=== PATIENT | female | born 1955 | race Two or more races ===

== ENCOUNTER 2024-04-15 12:58 | Emergency (ER) | payer MEDICARE, MEDICAID, SELFPAY ==
[2024-04-15 13:23] VITALS: BP 113/77; PULSE 76; RESP 16; TEMP 36.7; O2SAT 96; BMI 26.9
--- NOTE | 2024-04-15 13:37 | XR_ITS ---
Examination: PA lateral chest 2 views Technique: Upright PA lateral chest 2 views Exam date and time: April 15, 1999 2513.9 hours Indications: Coughing fever beginning 4 days ago. Findings: Mild prominence left ventricle Significant increased AP dimension chest Accentuation basilar bronchovascular markings No pulmonary edema No lobar pneumonia Severe osteopenia with kyphosis dorsal spine secondary to chronic wedging mid dorsal vertebral bodies Transpedicular lower thoracic lumbar stabilization Impression: COPD Basilar bronchitis versus early bronchopneumonia, clinical correlation advised
--- NOTE | 2024-04-15 13:38 | PD.EDADULT ---
ED General RME/HPI General Chief complaint: Flu Like Symptoms Stated complaint: FLU SYMPTOMS FOR 5 DAYS Time Seen by Provider: 04/15/24 13:37 Arrival date/time: 04/15/24 12:58 No CC: Cough fever chills phlegm HPI ongoing for 5 days, after day 2 the fever ceased but the rest of the symptoms including body aches persisted. Taking Tylenol as needed with minimal relief. Denies any chest pain difficulty breathing headache Related Data Previous Rx's ?Medication ?Instructions ?Recorded doxycycline hyclate 100 mg capsule 100 mg PO BID #14 caps 04/15/24 prednisone 20 mg tablet See Taper PO BID 3 days #6 tabs 04/15/24 Allergies Allergy/AdvReac Type Severity Reaction Status Date / Time Penicillins Allergy Severe Hives Verified 04/15/24 13:02 Review of Systems Review of Systems Narrative Review of Systems: GEN: + fever, + chills, no weight loss EYES: No discharge, no visual changes, no pain HEENT: No ear pain, no congestion, no sore throat PULM: No shortness of breath, no cough, no congestion CV: No chest pain, no dyspnea on exertion, no palpitations GI: No nausea, no vomiting, no diarrhea, no pain, no constipation : No frequency, no urgency, no dysuria MUSC/SKEL: No joint pain, no back pain SKIN: No rash PSYCH: No hallucinations, no depression HEME/LYMPH: No easy bleeding or bruising tendencies NEURO: + weakness, no headache Past Medical History Social History SMOKING STATUS: Light (< 1 pack/day) SUBSTANCE USE: does not use ED Exam Narrative Physical exam: [General: Obese not in cot no acute distress Head normocephalic HEENT: Within acceptable limits Neck is supple nontender Chest equal chest rise nontender to palpation Respiratory: Based end expiratory crackles, no upper lobe wheezing. Greater on the right than the left. CV: Rate rhythm is regular no murmurs rubs or clicks Abdomen is soft nontender no masses positive bowel sounds all 4 quadrants Back: No CVA tenderness no spinous process tenderness from cervical spine thoracic and lumbar spine Skin: Intact no petechiae rash induration ulceration or crepitus Extremities: Moving all extremity against resistance cap refill less than 2 seconds neurosensory intact Neuro: Awake alert oriented x3 Glascow coma 15 no focal deficits] Course Quality Measures none Orders Category Date Time Status Bedside COVID-19 Antigen Test NOW Care 04/15/24 13:37 Completed Bedside Influenza A&B Antigen Test NOW Care 04/15/24 13:38 Completed XR chest 2V Stat Exams 04/15/24 13:37 Completed Vital Signs Vital signs: Vital Signs Temperature 98.1 F 04/15/24 13:23 Pulse Rate 76 04/15/24 13:23 Respiratory Rate 16 04/15/24 13:23 Blood Pressure 113/77 04/15/24 13:23 Pulse Oximetry (%) 96 04/15/24 13:23 Oxygen Delivery Method Room Air 04/15/24 13:23 [facility] Patient data External records reviewed:: [facility] previous records Clinical information provided by:: patient and spouse Social determinants that could affect healthcare access:: none Patient has the following chronic illnesses:: None How is presenting disease/condition affected by chronic disease/condition?: uneffected by Evaluation data The following diagnostics were reviewed and interpreted by me:: lab results and radiology exam(s) Lab and/or radiology exams considered but not ordered:: COVID influenza are negative Chest x-ray as interpreted by me read by radiology as positive for bronchitis. Interpretation Summary: Bronchitis Medications Medications considered but not ordered:: None Medication administrations:: None Consultations Consultation(s) initiated? (list below): No Diagnosis Differential Diagnosis ED Complaint MDM: Pneumonia viral syndrome bronchitis Most likely diagnosis given after review of the tests above:: Bronchitis Admission Indicated Admission indicated?: not indicated Explain why admission is indicated or not indicated:: Stable for outpatient follow-up Admission Request Was there a request for admission?: No Disposition Plan Disposition Plan: Discharge Discharge Attestation Discharge Attestation: The patient and all family members were given an opportunity to ask questions and understood the discharge instructions. Discharge instructions specifically effects, indications for sooner follow up or return to the emergency department, and the expected course of current diagnosis. Patient condition: Stable Medical Decision Making Differential Diagnosis Differential Diagnosis: Pneumonia viral syndrome bronchitis Discharge Plan Plan Patient Disposition: HOME (Self Care) Patient condition on transfer: Stable Prescriptions/Referrals Prescriptions/Med Rec: New doxycycline hyclate 100 mg capsule 100 mg PO BID Qty: 14 0RF prednisone 20 mg tablet See Taper PO BID 3 Days Qty: 6 0RF Taper: Prednisone Taper 20 mg DAILY for 2 Days and 0 Hour 10 mg DAILY for 2 Days and 0 Hour 5 mg DAILY for 7 Days and 0 Hour Referrals: Nikkie Mcgarry PA-C [Primary Care Provider] - In 1 week Problem List Clinical Impression: Bronchitis Patient/Caregiver Discharge Instructions Education Materials: ED Upper Resp Infec Abx Tx Additional Instructions: Take the medications as prescribed if there is worsening of symptoms follow-up with your primary care doctor. Print Language: Mauritian Stand Alone Forms: Laura Award Info., Work/School Release, Patient Portal Info Letter PA/DALLIN Supervising Physician PA/DALLIN Supervising Physician: Alf Dacosta ENP
== END 2024-04-15 15:20 | disposition home or self-care (01) ==
PROVIDERS: Emergency Provider Emergency Medicine; PCP Physician Assistant
DX: J40 Bronchitis, not specified as acute or chronic (principal)
CPT/HCPCS: 71046; 87400; 87811; 99283